=== PATIENT | male | born 1970 | race Caucasian/White ===

== ENCOUNTER 2024-11-09 23:42 | Emergency (ER) | payer BC, OTHER ==
[~2024-11-09] VITALS: Ht 172.7 cm; Wt 109.6 kg
[2024-11-09] MEDS ORDERED: LISINOPRIL10 MG PO (23:56)
[2024-11-09] MEDS ORDERED: HYDROCHLOROTH12.5 MG PO (23:57)
[2024-11-09] MEDS ORDERED: METFORMIN HCL500 MG PO (23:58)
[2024-11-10 00:09] LABS: BASOPHILS 0.7 % (0.2-1.2); EOSINOPHILS 2.3 % (0.8-7.0); LYMPHOCYTES 20.3 % (21.8-53.1); MCH 28.9 PG (25.7-32.2); MCHC 33.2 g/dL (32.3-36.5); MCV 87.1 fL (79.0-92.2); MONOCYTES 7.1 % (5.3-12.2); NEUTROPHILS 69.3 % (34.0-67.9); RBC 4.50 M/uL (4.63-6.08)
[2024-11-10] MEDS ORDERED: PHENTERMINE HCL15 MG PO (00:12)
[2024-11-10] MEDS ORDERED: TRULICITY1.5 MG/0.5 SQ (00:12)
[2024-11-10] MEDS ORDERED: FENOFIBRATE145 MG PO (00:12)
[2024-11-10 00:28] LABS: ALT (SGPT) 28.0 U/L (14-59); AST (SGOT) 17.0 U/L (15-37); GLOMERULAR FILTRATION RATE,EST 105.0 mL/min (>60); PROTEIN, TOTAL 7.1 g/dL (6.4-8.2); UREA NITROGEN 22.0 mg/dL (7-18)
[2024-11-10] MEDS ORDERED: MECLIZINE HCL25 MG PO (00:33)
[2024-11-10] MEDS ORDERED: POTASSIUM CHLORIDE 10 MEQ TABCR PO ONE (00:45)
[2024-11-10] MEDS ORDERED: MECLIZINE HCL 25 MG TAB PO ONE (00:45)
[2024-11-10] MEDS ORDERED: POTASSIUM CHLORIDE 10 MEQ TABCR ONE (00:48)
[2024-11-10 01:05] VITALS: BP 118/77
--- NOTE | 2024-11-10 11:43 | EKG ---
[facility] [address] [facility] [place] [address] Signed Normal sinus rhythm Normal ECG No previous ECGs available Confirmed by NICOLAS AYALA MD ([id number]) on 11/10/2024 11:42:59 AM Electronically Signed By: NICOLAS AYALA 11/10/24 1143 PATIENT NAME: ROCIORON AISSATOU Electrocardiogram DATE OF : 70 PHYSICIAN: NICOLAS AYALA REPORT #: [id number] REPORT IS CONFIDENTIAL AND NOT TO BE RELEASED WITHOUT AUTHORIZATION
== END 2024-11-10 00:50 | disposition home or self-care (01) ==
LOC: ED 23:42
PROVIDERS: Family Medicine
DX: H81.11 Benign paroxysmal vertigo, right ear (principal); E87.6 Hypokalemia; I10 Essential (primary) hypertension; R73.03 Prediabetes; Z88.0 Allergy status to penicillin; Z88.2 Allergy status to sulfonamides; Z79.84 Long term (current) use of oral hypoglycemic drugs; Z79.85 Long-term (current) use of injectable non-insulin antidiabetic drugs; Z79.899 Other long term (current) drug therapy
CPT/HCPCS: 36415; 80053; 83735; 84484; 85025; 93005; 93010; 99284; A9270